=== PATIENT | female | born 1985 | race Caucasian/White ===

== ENCOUNTER 2019-02-19 07:12 | Emergency (ER) | payer OTHER ==
[~2019-02-19] VITALS: Ht 162.5 cm; Wt 61.2 kg
[~2019-02-19 07:12] MED LIST: ANAPROX DS550 MG PO; BACTRIM DS 8001 TA1 PO; CEFTIN500 M1 PO; CIPROFLOXACIN500 M4 PO; CYCLOBENZAPRINE5 M3 PO; KETOROLAC10 MG PO; MIRENA52 MG IU; Motrin,Rufen800 MG PO; NKHM; SEPTRA DS 800 M1 TAB PO
[2019-02-19 07:33] LABS: BASO % 0.3 % (0.0-1.0); EOS # 0.1 10*3/uL (0.0-0.4); EOS % 0.6 % (1.0-4.0); HEMATOCRIT 44.2 % (37.0-47.0); HEMOGLOBIN 14.9 g/dl (12.0-16.0); LYMPH % 18.8 % (27.0-41.0); MEAN CELL VOLUME 96.9 fl (81.0-99.0); MEAN CORPUSCULAR HGB 32.7 pg (27.0-31.0); MEAN CORPUSCULAR HGB CONC 33.7 g/dl (33.0-37.0); MEAN PLATELET VOLUME 10.5 fl (9.6-12.3); MONO # 0.9 10*3/uL (0.1-1.0); MONO % 8.3 % (3.0-9.0); NEUT # 7.5 10*3/uL (2.3-7.9); NEUT % 71.7 % (47.0-73.0); PLATELET COUNT AUTOMATED 198 10*3/uL (130-400); RED BLOOD COUNT 4.56 10*6/uL (4.10-5.10); WHITE BLOOD COUNT 10.5 10*3/uL (4.8-10.8)
[2019-02-19 07:41] LABS: BILIRUBIN NEGATIVE (NEGATIVE); BLOOD TRACE-INTACT (NEGATIVE); CLARITY SL CLOUDY (CLEAR); COLOR YELLOW (YELLOW); GLUCOSE NEGATIVE (NEGATIVE); KETONE NEGATIVE (NEGATIVE); LEUKO ESTERASE NEGATIVE (NEGATIVE); NITRITE NEGATIVE (NEGATIVE); SPECIFIC GRAVITY 1.025 (1.005-1.030)
[2019-02-19 07:48] LABS: BACTERIA 1+; CALCIUM OXALATE CRYSTALS 1+; EPITHELIAL CELLS 31-40; MUCOUS 1+
[2019-02-19 07:49] LABS: ALBUMIN 3.9 gm/dl (3.1-4.5); ALKALINE PHOSPHATASE 52 U/L (45-117); BUN 10 mg/dl (7-24); CHLORIDE 107 mmol/L (98-107); CREATININE 0.89 mg/dL (0.55-1.02); POTASSIUM 3.8 mmol/L (3.5-5.1); SGOT/AST 21 IU/L (3-35); SGPT/ALT 35 U/L (12-78); SODIUM 141 mmol/L (136-145); TOTAL PROTEIN 7.6 gm/dL (6.4-8.2)
[2019-02-19] MEDS ORDERED: NAPROSYN500 MG PO (09:27)
[2019-02-19] MEDS ORDERED: TYLENOL325 M1 PO (09:27)
== END 2019-02-19 09:36 | disposition home or self-care (01) ==
LOC: ED 07:12
PROVIDERS: Emergency Medicine
DX: S22.41XA Multiple fractures of ribs, right side, initial encounter for closed fracture (principal); S30.0XXA Contusion of lower back and pelvis, initial encounter; M53.3 Sacrococcygeal disorders, not elsewhere classified; V80.010A Animal-rider injured by fall from or being thrown from horse in noncollision accident, initial encounter; Y93.52 Activity, horseback riding; Y92.89 Other specified places as the place of occurrence of the external cause; Y99.8 Other external cause status

== ENCOUNTER 2023-03-09 17:00 | Emergency (ER) | payer SELFPAY ==
[~2023-03-09] VITALS: Ht 160 cm; Wt 59.0 kg
[~2023-03-09 17:00] MED LIST changes: +NAPROSYN500 MG PO; +TYLENOL325 M1 PO
[2023-03-09 17:21] LABS: BILIRUBIN Negative (Negative); BLOOD Negative (Negative); CLARITY Clear (Clear); COLOR Yellow (Yellow); GLUCOSE Negative (Negative); KETONE Trace (Negative); LEUKO ESTERASE Trace (Negative); NITRITE Negative (Negative); PH 5.5 (4.5-8.0); SPECIFIC GRAVITY >= 1.030 (1.001-1.030)
[2023-03-09 17:43] LABS: BACTERIA 1+
[2023-03-09 17:44] LABS: MUCOUS 1+
[2023-03-09] MEDS ORDERED: PREDNISONE50 MG PO (17:51)
== END 2023-03-09 18:01 | disposition home or self-care (01) ==
LOC: ED 17:00
PROVIDERS: Nurse Practitioner Family
DX: S39.012A Strain of muscle, fascia and tendon of lower back, initial encounter (principal); Z98.890 Other specified postprocedural states; Z90.49 Acquired absence of other specified parts of digestive tract; Z79.899 Other long term (current) drug therapy; X58.XXXA Exposure to other specified factors, initial encounter; Y93.89 Activity, other specified; Y92.89 Other specified places as the place of occurrence of the external cause; Y99.8 Other external cause status

== ENCOUNTER 2023-03-11 11:51 | Emergency (ER) | payer SELFPAY ==
[~2023-03-11] VITALS: Wt 61.2 kg
[~2023-03-11 11:51] MED LIST changes: +PREDNISONE50 MG PO
[2023-03-11] MEDS ORDERED: KETOROLAC10 MG PO (12:28)
== END 2023-03-11 12:43 | disposition home or self-care (01) ==
LOC: ED 11:51
DX: S39.012A Strain of muscle, fascia and tendon of lower back, initial encounter (principal); Z90.49 Acquired absence of other specified parts of digestive tract; W10.9XXA Fall (on) (from) unspecified stairs and steps, initial encounter; Y93.89 Activity, other specified; Y92.89 Other specified places as the place of occurrence of the external cause; Y99.8 Other external cause status; Z98.890 Other specified postprocedural states

== ENCOUNTER 2024-03-28 16:52 | Emergency (ER) | payer OTHER ==
[~2024-03-28] VITALS: Ht 162.5 cm; Wt 63.5 kg
[2024-03-28] MEDS ORDERED: Ketorolac Tromethamine 30 MG/ML VIAL IM ONE (17:25)
[2024-03-28] MEDS ORDERED: METHOCARBAMOL 500 MG TAB PO ONE (17:25)
[2024-03-28] MEDS ORDERED: methylPREDNISolone sod succ 125 MG VIAL IM ONE (17:25)
[2024-03-28] MEDS ORDERED: PREDNISONE50 MG PO (18:40)
[2024-03-28] MEDS ORDERED: METHOCARBAMOL500 M1 PO (18:40)
== END 2024-03-28 19:07 | disposition home or self-care (01) ==
LOC: ED 16:52
DX: M54.50 Low back pain, unspecified (principal); M79.604 Pain in right leg; Z90.49 Acquired absence of other specified parts of digestive tract

== ENCOUNTER 2024-09-27 07:33 | Emergency (ER) | payer OTHER ==
[~2024-09-27] VITALS: Ht 162.5 cm; Wt 59.0 kg
[~2024-09-27 07:33] MED LIST changes: +METHOCARBAMOL500 M1 PO
[2024-09-27] MEDS ORDERED: AVPAK AZITHROM250 M1 PO (07:46)
[2024-09-27 08:16] LABS: BILIRUBIN Negative (Negative); BLOOD Negative (Negative); CLARITY Turbid (Clear); COLOR Yellow (Yellow); GLUCOSE Negative (Negative); KETONE Trace (Negative); LEUKO ESTERASE 2+ (Negative); NITRITE Negative (Negative); PH 5.5 (4.5-8.0); SPECIFIC GRAVITY 1.025 (1.001-1.030)
[2024-09-27 08:54] LABS: BACTERIA 3+; CALCIUM OXALATE CRYSTALS Trace; EPITHELIAL CELLS TNTC; RBC 0-2 rbc/hpf (0-2)
[2024-09-27] MEDS ORDERED: LEVOFLOXACIN750 M2 PO (09:02)
== END 2024-09-27 09:26 | disposition home or self-care (01) ==
LOC: ED 07:33
PROVIDERS: Emergency Medicine
DX: J40 Bronchitis, not specified as acute or chronic (principal); N39.0 Urinary tract infection, site not specified; Z90.49 Acquired absence of other specified parts of digestive tract